=== PATIENT | male | born 1965 | race Caucasian/White ===

== ENCOUNTER 2024-12-15 19:43 | Emergency (ER) | payer SELFPAY ==
[~2024-12-15] VITALS: Ht 180.3 cm; Wt 195.0 kg
[2024-12-15 19:43] VITALS: BP 155/98; RESP 18; O2SAT 96
[2024-12-15 19:58] VITALS: PULSE 143
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
--- NOTE | 2024-12-15 20:09 | ECG ---
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
[2024-12-15 20:25] LABS: Basophils # (auto) 0.1 10 ^3/uL (0-0.2); Monocytes # (auto) 0.9 10 ^3/uL (0-1.3); Monocytes % (auto) 8.6 % (0.0-12.0); Neutrophils # (auto) 6.5 10 ^3/uL (1.6-8.6); Nucleated Red Blood Cells % 0.1 %
[2024-12-15 20:27] LABS: Basophils % (auto) 0.8 % (0.0-2.0); Eosinophils # (auto) 0.1 10 ^3/uL (0-0.8); Eosinophils % (auto) 0.6 % (0.0-7.0); Hematocrit 50.1 % (41.0-53.0); Hemoglobin 16.8 g/dL (13.5-17.5); Lymphocytes # (auto) 2.5 10 ^3/uL (0.4-5.4); Lymphocytes % (auto) 24.8 % (10.0-50.0); Mean Corpuscular Hemoglobin 33.8 pg (28.0-32.0); Mean Corpuscular Hgb Conc. 33.4 g/dL (32.0-36.0); Mean Corpuscular Volume 100.9 fL (80.0-100.0); Neutrophils % (auto) 65.2 % (37.0-80.0); Platelet Count (auto) 359 10^3/uL (140-450); Red Blood Cells 4.97 10^6/uL (4.5-5.90); Red Cell Distribution Width 14.7 % (11.8-14.3)
[2024-12-15 20:46] LABS: Alkaline Phosphatase 76 U/L (46-116); Anion Gap 15 (5-15); BUN/Creatinine Ratio 24.3 (10.0-20.0); Blood Urea Nitrogen 18 mg/dL (9-23); Calcium 9.7 mg/dL (8.7-10.4); Glucose 101 mg/dL (74-106); Potassium 4.2 mmol/L (3.5-5.1); Sodium 143 mmol/L (136-145)
[2024-12-15 20:47] LABS: Bilirubin, Total 0.3 mg/dL (0.2-1.0); Total Protein 7.3 g/dL (5.7-8.2)
[2024-12-15 20:49] LABS: Alanine Aminotransferase 44 U/L (7-40); Albumin 4.9 g/dL (3.2-4.8); Aspartate Aminotransferase 45 U/L (13-40); Carbon Dioxide 18 mmol/L (20-31); Chloride 110 mmol/L (98-107)
[2024-12-15] MEDS: SODIUM CHLORIDE 0.9% 1,000 ML IV ONE (22:18)
== END 2024-12-15 22:21 | disposition home or self-care (01) ==
LOC: ER 19:43
DX: F10.129 Alcohol abuse with intoxication, unspecified (principal); J45.909 Unspecified asthma, uncomplicated; I10 Essential (primary) hypertension; Z90.89 Acquired absence of other organs; Z98.890 Other specified postprocedural states; V49.3XXA Car occupant (driver) (passenger) injured in unspecified nontraffic accident, initial encounter; Y93.89 Activity, other specified; Y92.89 Other specified places as the place of occurrence of the external cause; Y99.8 Other external cause status
CPT/HCPCS: 36415; 80053; 80320; 84484; 85025; 93005